=== PATIENT | female | born 1955 | race African-American/Black ===

== ENCOUNTER 2017-12-08 11:42 | Outpatient (CLI) | payer OTHER | END 2017-12-08 11:43 | disposition home or self-care (01) | LOC: BICMAMMO 11:42 | PROVIDERS: ATTEND Obstetrics & Gynecology | DX: Z12.31 Encounter for screening mammogram for malignant neoplasm of breast (principal) | CPT/HCPCS: 77063; 77067 ==

== ENCOUNTER 2018-03-11 09:44 | Outpatient (CLI) | payer OTHER ==
--- NOTE | 2018-03-11 11:39 | BD ---
DEXA BONE DENSITY SCAN: 03/11/2018 HISTORY: Screening exam for osteoporosis. Postmenopausal female. COMPARISON: 03/04/2016 LUMBAR SPINE BMD (g/cm2) T-SCORE PREVIOUS T-SCORE L1 0.988 0.0 -0.1 L2 0.962 -0.6 -0.3 L3 0.963 -1.1 -1.9 L4 0.956 -1.0 -0.9 TOTAL 0.966 -0.7 -0.5 FEMORAL NECK: 0.939 0.8 0.5 TOTAL: 1.117 1.4 1.1 The FRAX-WHO Fracture Risk Assessment tool is not reported, as all T-scores are at or above -1.0. The proximal femoral bone mineral density has improved by 4.1% when compared to the prior examination , and the bone mineral density within the lumbar spine has decreased by 2.1% when compared to the franko or examination. IMPRESSION: Normal bone mineral density examination. POS: PATRICIA
== END 2018-03-11 09:45 | disposition home or self-care (01) ==
LOC: BICMAMMO 09:44
PROVIDERS: ATTEND Obstetrics & Gynecology
DX: Z13.820 Encounter for screening for osteoporosis (principal)
CPT/HCPCS: 77080

== ENCOUNTER 2018-12-10 10:44 | Outpatient (CLI) | payer OTHER ==
--- NOTE | 2018-12-10 16:08 | MMO ---
Bilateral MAMMO Bilat Screen [facility]. CLINICAL HISTORY: Patient is 63 years old and is seen for screening. The patient has no family history of breast cancer. The patient has no personal history of cancer. VIEWS: The views performed were: bilateral craniocaudal with tomosynthesis and bilateral mediolateral oblique with tomosynthesis. FILMS COMPARED: The present examination has been compared to a prior imaging study performed at [facility] on 12/08/2017. This study has been interpreted with the assistance of computer-aided detection. MAMMOGRAM FINDINGS: The breasts are heterogeneously dense, which could obscure a lesion on mammography. There are no suspicious masses, suspicious calcifications, or new areas of architectural distortion. IMPRESSION: THERE IS NO MAMMOGRAPHIC EVIDENCE OF MALIGNANCY. A ROUTINE FOLLOW-UP MAMMOGRAM IN 1 YEAR IS RECOMMENDED. THE RESULTS OF THIS EXAM WERE SENT TO THE PATIENT. ACR BI-RADS Category 1 - Negative MAMMOGRAPHY NOTE: 1. A negative mammogram report should not delay a biopsy if a dominant of clinically suspicious mass is present. 2. Approximately 10% to 15% of breast cancers are not detected by mammography. 3. Adenosis and dense breasts may obscure an underlying neoplasm. Reported by: SMITA DELUCA MD Electonically Signed: [id number]
== END 2018-12-10 10:45 | disposition home or self-care (01) ==
LOC: BICMAMMO 10:44
PROVIDERS: ATTEND Obstetrics & Gynecology
DX: Z12.31 Encounter for screening mammogram for malignant neoplasm of breast (principal)
CPT/HCPCS: 77063; 77067

== ENCOUNTER 2019-12-23 11:17 | Outpatient (CLI) | payer OTHER ==
--- NOTE | 2019-12-23 14:21 | MMO ---
Bilateral MAMMO Bilat Screen [facility]. CLINICAL HISTORY: Patient is 64 years old and is seen for screening. The patient has no family history of breast cancer. The patient has no personal history of cancer. VIEWS: The views performed were: bilateral craniocaudal with tomosynthesis and bilateral mediolateral oblique with tomosynthesis. FILMS COMPARED: The present examination has been compared to prior imaging studies performed at [facility] on 12/08/2017 and 12/10/2018. This study has been interpreted with the assistance of computer-aided detection. MAMMOGRAM FINDINGS: The breasts are heterogeneously dense, which could obscure a lesion on mammography. There are no suspicious masses, suspicious calcifications, or new areas of architectural distortion. IMPRESSION: THERE IS NO MAMMOGRAPHIC EVIDENCE OF MALIGNANCY. A ROUTINE FOLLOW-UP MAMMOGRAM IN 1 YEAR IS RECOMMENDED. THE RESULTS OF THIS EXAM WERE SENT TO THE PATIENT. ACR BI-RADS Category 1 - Negative MAMMOGRAPHY NOTE: 1. A negative mammogram report should not delay a biopsy if a dominant of clinically suspicious mass is present. 2. Approximately 10% to 15% of breast cancers are not detected by mammography. 3. Adenosis and dense breasts may obscure an underlying neoplasm. Reported by: OSCAR RUIZ MD Electonically Signed: [id number]
== END 2019-12-23 11:18 | disposition home or self-care (01) ==
LOC: BICMAMMO 11:17
PROVIDERS: ATTEND Obstetrics & Gynecology
DX: Z12.31 Encounter for screening mammogram for malignant neoplasm of breast (principal)
CPT/HCPCS: 77063; 77067

== ENCOUNTER 2020-03-27 15:15 | Outpatient (CLI) | payer OTHER ==
--- NOTE | 2020-03-27 16:00 | BD ---
Exam: DEXA Bone Density 03/27/20 INDICATION: Postmenopausal screening. Lumbar Spine: BMD (g/cm2) T-SCORE L1 0.979 -0.1 L2 1.019 -0.1 L3 0.972 -1.0 L4 0.980 -0.7 L1-L4 0.986 -0.6 Total density 03/11/18: 0.966 03/04/16: 0.987 02/17/13: 0.925 Femoral Neck: 0.833 -0.1 Total Femur: 1.061 1.0 Total femur density 03/11/28: 1.117 03/04/16: 1.073 02/17/13: 1.067 Impression: Bone mineral density of the lumbar spine and femoral neck are both within normal range. POS: AGW
== END 2020-03-27 15:16 | disposition home or self-care (01) ==
LOC: BICMAMMO 15:15
PROVIDERS: ATTEND Obstetrics & Gynecology
DX: Z13.820 Encounter for screening for osteoporosis (principal)
CPT/HCPCS: 77080

== ENCOUNTER 2020-12-24 09:53 | Outpatient (CLI) | payer OTHER | END 2020-12-24 09:54 | disposition home or self-care (01) | LOC: BICMAMMO 09:53 | PROVIDERS: ATTEND Obstetrics & Gynecology | DX: Z12.31 Encounter for screening mammogram for malignant neoplasm of breast (principal) | CPT/HCPCS: 77063; 77067 ==

== ENCOUNTER 2021-05-01 10:06 | Outpatient (CLI) | payer BC | END 2021-05-01 10:07 | disposition home or self-care (01) | LOC: SCSMRI 10:06 | PROVIDERS: ATTEND Orthopaedic Surgery | DX: M17.12 Unilateral primary osteoarthritis, left knee (principal); S83.242A Other tear of medial meniscus, current injury, left knee, initial encounter; M71.22 Synovial cyst of popliteal space [Baker], left knee; M25.462 Effusion, left knee ==

== ENCOUNTER 2021-12-26 10:18 | Outpatient (CLI) | payer BC | END 2021-12-26 10:19 | disposition home or self-care (01) | LOC: BICMAMMO 10:18 | PROVIDERS: ATTEND Family Medicine | DX: Z12.31 Encounter for screening mammogram for malignant neoplasm of breast (principal) | CPT/HCPCS: 77063; 77067 ==

== ENCOUNTER 2022-01-22 08:00 | Outpatient (CLI) | payer BC | END 2022-01-22 08:01 | disposition home or self-care (01) | LOC: ULT 08:00 | PROVIDERS: ATTEND Internal Medicine Nephrology | DX: N17.9 Acute kidney failure, unspecified (principal); E87.6 Hypokalemia; I13.10 Hypertensive heart and chronic kidney disease without heart failure, with stage 1 through stage 4 chronic kidney disease, or unspecified chronic kidney disease; N18.9 Chronic kidney disease, unspecified; D63.1 Anemia in chronic kidney disease; E78.5 Hyperlipidemia, unspecified; M19.90 Unspecified osteoarthritis, unspecified site; R80.9 Proteinuria, unspecified; R31.9 Hematuria, unspecified | CPT/HCPCS: 76770; 93975 ==

== ENCOUNTER 2022-10-23 10:54 | Outpatient (CLI) | payer MEDICARE, BC ==
[2022-10-23 11:59] LABS: #Eosinphils 0.3 10x3/uL (0.0-0.5); #Monocytes 0.7 10x3/uL (0.0-1.1); #Neutrophils 5.4 10x3/uL (1.5-8.4); %Basophils 0.5 % (0.0-2.0); %Lymphocytes 21.8 % (18.0-47.0); %Monocytes 8.4 % (0.0-10.0); %Neutrophils 64.9 % (40.0-75.0); Hemoglobin 12.2 g/dL (12.0-15.5); Mean Corpuscular Volume 87.6 fl (81.6-98.3); Platelet Count 235 10x3/uL (150-450); Red Blood Cell (RBC) Count 4.35 10x6/uL (3.90-5.03); White Blood Cell (WBC) Count 8.2 10x3/uL (3.5-10.5)
[2022-10-23 12:07] LABS: Prothrombin Time 10.7 sec (9.5-12.1)
[2022-10-23 12:13] LABS: Anion Gap 15 mmol/L (10-20); BUN (Urea Nitrogen) 30 mg/dL (9.8-20.1); Calc. Creatinine Clearance 0 mL/min (70-130); Calcium 9.7 mg/dL (7.8-10.44); Carbon Dioxide 23 mmol/L (23-31); Chloride 107 mmol/L (98-107); Estimated GFR 43; Glucose 98 mg/dL (80-115); Potassium 3.6 mmol/L (3.5-5.1); Sodium 141 mmol/L (136-145)
== END 2022-10-23 10:55 | disposition home or self-care (01) ==
LOC: LABBT 10:54
PROVIDERS: ATTEND Orthopaedic Surgery
DX: Z01.818 Encounter for other preprocedural examination (principal); M17.12 Unilateral primary osteoarthritis, left knee
CPT/HCPCS: 80048; 85025; 85610; 87081; 93005; 93010

== ENCOUNTER 2022-10-28 05:33 | Inpatient (IN) | payer BC, MEDICARE ==
[2022-10-23 11:31] VITALS: BMI 32.8
[2022-10-28] MEDS ORDERED: Vancomycin (BATCH) 1.5 GRAM/300 ML BAG ONE (06:27)
[2022-10-28] MEDS ORDERED: Tranexamic Acid 1,000 MG/10 ML VIAL ONE ×2 (06:27→09:49)
[2022-10-28] MEDS ORDERED: Bupivacaine HCl 0.5%/Epinephrine 1:200,000/PF 30 ml Vial ONE (06:27)
[2022-10-28] MEDS ORDERED: Sodium Chloride 0.9% 100 ML ONE ×2 (06:27→06:55)
[2022-10-28] MEDS ORDERED: Midazolam HCl 2 mg/2 ml Vial ONE (06:46)
[2022-10-28] MEDS ORDERED: fentaNYL 50 mcg/mL 1 mL Vial ONE ×7 (06:46→12:49)
[2022-10-28] MEDS ORDERED: Ropivacaine 0.5% HCl/PF (150 MG/30 ML VIAL) ONE (06:46)
[2022-10-28] MEDS ORDERED: CEFAZOLIN 2 GM VIAL ONE (06:55)
[2022-10-28] MEDS ORDERED: Ondansetron PF 4 MG/2 ML Vial ONE (07:30)
[2022-10-28] MEDS ORDERED: Dexamethasone 20 MG/5 ML VIAL ONE (07:30)
[2022-10-28] MEDS ORDERED: PROPOFOL 200 MG/20 ML VIAL ONE (07:30)
[2022-10-28] MEDS ORDERED: Lidocaine 1% PF 5 ML VIAL ONE (07:30)
[2022-10-28] MEDS ORDERED: fentaNYL 50 mcg/mL 1 mL Vial SLOW IVP PRN (07:39)
[2022-10-28] MEDS ORDERED: Zolpidem Tartrate 5 MG TAB PO PRN ×2 (07:45→10:47)
[2022-10-28] MEDS ORDERED: Promethazine HCl 25 MG/ML VIAL IM PRN ×2 (07:45→10:47)
[2022-10-28] MEDS ORDERED: traMADol HCl 50 MG TAB PO PRN (07:45)
[2022-10-28] MEDS ORDERED: Ropivacaine 0.2% 550 ML 550 ML NERVE BLCK SCH (07:45)
[2022-10-28] MEDS ORDERED: Ondansetron PF 4 MG/2 ML Vial IVP PRN (10:47)
[2022-10-28] MEDS ORDERED: Acetaminophen 325 MG TAB PO PRN (10:47)
[2022-10-28] MEDS ORDERED: diphenhydrAMINE 25 MG CAP PO PRN (10:47)
[2022-10-28] MEDS ORDERED: Aspirin 81 mg Enteric Coated Tablet PO SCH (11:15)
[2022-10-28] MEDS ORDERED: Senokot S 8.6-50 MG TAB PO SCH (11:15)
[2022-10-28] MEDS ORDERED: Multivitamin W/ Minerals 1 TAB PO SCH (11:15)
[2022-10-28] MEDS ORDERED: Ferrous Gluconate 324 MG TAB PO SCH (11:15)
[2022-10-28] MEDS: traMADol HCl 50 MG TAB PO PRN ×2 (13:34→20:24)
[2022-10-28] MEDS: Dextrose 5 %-0.45 % NaCl 1,000 ML IV SCH ×2 (15:04→20:18)
[2022-10-28] MEDS: CEFAZOLIN 2 GM in Sodium Chloride 0.9% 100 ML IVPB SCH ×2 (15:05→23:20)
[2022-10-28] MEDS: Ondansetron PF 4 MG/2 ML Vial IVP PRN (16:19)
[2022-10-28] MEDS: HYDROcodone/Acetaminophen 10/325 mg Tablet PO PRN (17:03)
[2022-10-28] MEDS: Atorvastatin Calcium 10 MG TAB PO SCH (20:23)
[2022-10-28] MEDS: Carvedilol 25 MG TAB PO SCH (20:23)
[2022-10-28] MEDS: Aspirin 81 mg Enteric Coated Tablet PO SCH (20:23)
[2022-10-28] MEDS: Ferrous Gluconate 324 MG TAB PO SCH (20:25)
[2022-10-28] MEDS: Senokot S 8.6-50 MG TAB PO SCH (20:26)
[2022-10-28] MEDS: Amlodipine 5 MG TAB PO SCH (20:28)
[2022-10-29] MEDS: HYDROcodone/Acetaminophen 10/325 mg Tablet PO PRN ×4 (02:08→23:02)
[2022-10-29] MEDS: Dextrose 5 %-0.45 % NaCl 1,000 ML IV SCH ×2 (02:47→15:46)
[2022-10-29 05:52] LABS: Hemoglobin 11.2 g/dL (12.0-16.0); Mean Corpuscular HGB CONC 31.9 g/dL (32.0-36.0); Mean Corpuscular Hemoglobin 28.1 pg (27.0-31.0); Mean Platelet Volume 11.6 fL (7.4-10.4); Platelet Count 215 10x3/uL (130-400); Red Blood Cell (RBC) Count 3.99 mill/uL (4.20-5.40); White Blood Cell (WBC) Count 16.9 10x3/uL (4.8-10.8)
[2022-10-29] MEDS: traMADol HCl 50 MG TAB PO PRN ×3 (06:08→20:24)
[2022-10-29 07:44] LABS: Anion Gap 13 mmol/L (10-20); BUN (Urea Nitrogen) 16 mg/dL (9.8-20.1); Calc. Creatinine Clearance 66 mL/min (70-130); Calcium 9.3 mg/dL (7.8-10.44); Carbon Dioxide 22 mmol/L (23-31); Chloride 106 mmol/L (98-107); Estimated GFR 56; Glucose 109 mg/dL (80-115); Potassium 3.3 mmol/L (3.5-5.1); Sodium 138 mmol/L (136-145)
[2022-10-29] MEDS: Aspirin 81 mg Enteric Coated Tablet PO SCH ×2 (08:24→20:23)
[2022-10-29] MEDS: Amlodipine 5 MG TAB PO SCH ×2 (08:24→20:23)
[2022-10-29] MEDS: Cholecalciferol 1,000 UNITS (25 MCG) TAB PO SCH (08:25)
[2022-10-29] MEDS: Ferrous Gluconate 324 MG TAB PO SCH ×2 (08:25→20:23)
[2022-10-29] MEDS: Multivitamin W/ Minerals 1 TAB PO SCH (08:25)
[2022-10-29] MEDS: Carvedilol 25 MG TAB PO SCH ×2 (08:25→20:23)
[2022-10-29] MEDS: Senokot S 8.6-50 MG TAB PO SCH ×2 (08:26→20:23)
[2022-10-29] MEDS: Ondansetron PF 4 MG/2 ML Vial IVP PRN (09:20)
[2022-10-29] MEDS: Atorvastatin Calcium 10 MG TAB PO SCH (20:24)
[2022-10-30] MEDS: Dextrose 5 %-0.45 % NaCl 1,000 ML IV SCH ×3 (00:22→20:41)
[2022-10-30 06:32] LABS: Hemoglobin 10.5 g/dL (12.0-16.0); Mean Corpuscular HGB CONC 31.1 g/dL (32.0-36.0); Mean Corpuscular Volume 90.1 fl (78.0-98.0); Mean Platelet Volume 11.1 fL (7.4-10.4); Platelet Count 192 10x3/uL (130-400); RBC Distribution Width 14.4 % (11.5-14.5); Red Blood Cell (RBC) Count 3.75 mill/uL (4.20-5.40); White Blood Cell (WBC) Count 13.2 10x3/uL (4.8-10.8)
[2022-10-30] MEDS: traMADol HCl 50 MG TAB PO PRN ×2 (08:48→16:48)
[2022-10-30] MEDS: Multivitamin W/ Minerals 1 TAB PO SCH (08:49)
[2022-10-30] MEDS: Carvedilol 25 MG TAB PO SCH ×2 (08:49→20:40)
[2022-10-30] MEDS: Senokot S 8.6-50 MG TAB PO SCH ×2 (08:49→20:39)
[2022-10-30] MEDS: Cholecalciferol 1,000 UNITS (25 MCG) TAB PO SCH (08:49)
[2022-10-30] MEDS: Ferrous Gluconate 324 MG TAB PO SCH ×2 (08:49→20:40)
[2022-10-30] MEDS: Aspirin 81 mg Enteric Coated Tablet PO SCH ×2 (08:49→20:40)
[2022-10-30] MEDS: Amlodipine 5 MG TAB PO SCH ×2 (08:49→20:40)
[2022-10-30] MEDS: HYDROcodone/Acetaminophen 10/325 mg Tablet PO PRN ×2 (11:50→20:40)
[2022-10-30] MEDS: Atorvastatin Calcium 10 MG TAB PO SCH (20:40)
[2022-10-31 05:29] LABS: Hemoglobin 11.1 g/dL (12.0-16.0); Mean Corpuscular HGB CONC 31.7 g/dL (32.0-36.0); Mean Corpuscular Hemoglobin 28.2 pg (27.0-31.0); Mean Corpuscular Volume 88.8 fl (78.0-98.0); Mean Platelet Volume 11.7 fL (7.4-10.4); Platelet Count 189 10x3/uL (130-400); RBC Distribution Width 14.2 % (11.5-14.5); Red Blood Cell (RBC) Count 3.94 mill/uL (4.20-5.40); White Blood Cell (WBC) Count 11.3 10x3/uL (4.8-10.8)
[2022-10-31] MEDS: HYDROcodone/Acetaminophen 10/325 mg Tablet PO PRN ×2 (06:33→11:01)
[2022-10-31] MEDS: Dextrose 5 %-0.45 % NaCl 1,000 ML IV SCH (06:33)
[2022-10-31 08:10] VITALS: BP 128/80; TEMP 98.3
[2022-10-31] MEDS: Aspirin 81 mg Enteric Coated Tablet PO SCH (08:27)
[2022-10-31] MEDS: Ferrous Gluconate 324 MG TAB PO SCH (08:27)
[2022-10-31] MEDS: Multivitamin W/ Minerals 1 TAB PO SCH (08:27)
[2022-10-31] MEDS: Amlodipine 5 MG TAB PO SCH (08:27)
[2022-10-31] MEDS: Carvedilol 25 MG TAB PO SCH (08:27)
[2022-10-31] MEDS: Senokot S 8.6-50 MG TAB PO SCH (08:28)
[2022-10-31] MEDS: Cholecalciferol 1,000 UNITS (25 MCG) TAB PO SCH (08:28)
[2022-10-31] MEDS: traMADol HCl 50 MG TAB PO PRN (08:33)
== END 2022-10-31 11:14 | disposition home or self-care (01) | DRG 470 ==
LOC: SDC 05:33 → SURG A 13:30 → SDC 13:32 → SURG A 13:33 → OBSVTOIN 10-29 07:23
PROVIDERS: ADMIT Orthopaedic Surgery; ATTEND Orthopaedic Surgery
PROC: 0SRD0J9 Replacement of Left Knee Joint with Synthetic Substitute, Cemented, Open Approach (ICD-10-PCS; principal; 2022-10-28)
DX: M17.12 Unilateral primary osteoarthritis, left knee (principal); E78.5 Hyperlipidemia, unspecified; E78.00 Pure hypercholesterolemia, unspecified; N18.9 Chronic kidney disease, unspecified; I12.9 Hypertensive chronic kidney disease with stage 1 through stage 4 chronic kidney disease, or unspecified chronic kidney disease; Z90.710 Acquired absence of both cervix and uterus; Z88.0 Allergy status to penicillin; Z88.8 Allergy status to other drugs, medicaments and biological substances
CPT/HCPCS: 36415; 80048; 85027; A4306; C1776; J1100; J2250; J2405; J2704; J2795; J3010; J3370; J3490; J7042

== ENCOUNTER 2023-01-07 09:34 | Outpatient (CLI) | payer BC | END 2023-01-07 09:35 | disposition home or self-care (01) | LOC: BICMAMMO 09:34 | PROVIDERS: ATTEND Obstetrics & Gynecology | DX: Z12.31 Encounter for screening mammogram for malignant neoplasm of breast (principal) | CPT/HCPCS: 77063; 77067 ==

== ENCOUNTER 2024-01-13 10:31 | Outpatient (CLI) | payer BC | END 2024-01-13 10:32 | disposition home or self-care (01) | LOC: BICMAMMO 10:31 | PROVIDERS: ATTEND Obstetrics & Gynecology | DX: Z12.31 Encounter for screening mammogram for malignant neoplasm of breast (principal) | CPT/HCPCS: 77063; 77067 ==